=== PATIENT | male | born 1980 | race Hispanic/Latino ===

== ENCOUNTER 2019-03-18 21:56 | Inpatient (IN) | payer SELFPAY ==
[2019-03-18] MEDS ORDERED: ONDANSETRON 4 MG/2 ML VIAL ONE (22:22)
[2019-03-18] MEDS ORDERED: NA CHLORIDE 0.9% 1,000 ML ONE (22:22)
[2019-03-18] MEDS ORDERED: MORPHINE 4 MG/ML SYR ONE (22:22)
[2019-03-18 22:41] LABS: Basophils % 0.1 % (0-1.3); Hematocrit 47.7 % (39.6-49.0); Lymphocytes % 11.9 % (15.3-44.8); MPV 8.5 fL (7.6-11.3); RBC Red Blood Cell Count 5.21 M/uL (4.33-5.43)
[2019-03-18 22:53] LABS: Albumin 4.1 g/dL (3.4-5.0); Bilirubin Direct 0.3 mg/dL (0-0.2); Potassium 3.6 mmol/L (3.5-5.1)
[2019-03-19] MEDS ORDERED: MEPERIDINE HCL 25 MG/0.5 ML ONE (00:04)
--- NOTE | 2019-03-19 00:08 | ER ---
Nurse's Notes [facility] Name: Elton Carbone Age: 38 yrs Sex: Male : 1980 Arrival Date: 03/18/2019 Time: 21:59 Bed 20 Private MD: Diagnosis: Small bowel obstruction Presentation: 03/18 22:04 Presenting complaint: N/VD and upper abdominal pain x 2 days, not tolerating fluids. hb Transition of care: patient was not received from another setting of care. Onset of symptoms was March 17, 2019. Risk Assessment: Do you want to hurt yourself or someone else? Patient reports no desire to harm self or others. Care prior to arrival: None. 22:04 Method Of Arrival: Wheelchair hb 22:04 Acuity: ROCHELLE 3 hb 22:09 Initial Sepsis Screen: Does the patient meet any 2 criteria? HR > 90 bpm. No. Patient's jd3 initial sepsis screen is negative. Does the patient have a suspected source of infection? No. Patient's initial sepsis screen is negative. Historical: - Allergies: 22:05 No Known Allergies; hb - Home Meds: 22:05 Lisinopril Oral [Active]; hb - PMHx: 22:05 GERD; Hypertension; hb - PSHx: 22:05 Appendectomy; hb - Immunization history:: Adult Immunizations up to date. - Coronavirus screen:: The patient has NOT traveled to [place], [place], or [place] in the past 14 days. The patient has NOT had contact with known/suspected case of Coronavirus? Proceed with normal triage procedures. - Social history:: Smoking status: Patient denies any tobacco usage or history of. - Family history:: not pertinent. - Ebola Screening: : No symptoms or risks identified at this time. - Hospitalizations: : No recent hospitalization is reported. Screenin:08 Abuse screen: Denies threats or abuse. Nutritional screening: No deficits noted. jd3 Tuberculosis screening: No symptoms or risk factors identified. Fall Risk Ambulatory Aid- None/Bed Rest/Nurse Assist (0 pts). Gait- Normal/Bed Rest/Wheelchair (0 pts) Mental Status- Oriented to own ability (0 pts). Total Go Fall Scale indicates No Risk (0-24 pts). Assessment: 22:31 General: Appears in no apparent distress. uncomfortable, Behavior is calm, cooperative, jd3 appropriate for age. Pain: Complains of pain in right upper quadrant and left upper quadrant Quality of pain is described as sharp, tender. Neuro: Level of Consciousness is awake, alert, obeys commands, Oriented to person, place, time, situation. Cardiovascular: Denies chest pain, Capillary refill < 3 seconds Patient's skin is warm and dry. Respiratory: Airway is patent Respiratory effort is even, unlabored, Respiratory pattern is regular, symmetrical, Denies cough, shortness of breath. GI: Abdomen is round Bowel sounds present X 4 quads. firm and tender to palpation X 4 quads. Reports upper abdominal pain, diarrhea, nausea, vomiting. : No signs and/or symptoms were reported regarding the genitourinary system. EENT: No signs and/or symptoms were reported regarding the EENT system. Derm: Skin is intact, Skin is dry, Skin is normal, Skin temperature is warm. Musculoskeletal: Circulation, motion, and sensation intact. Range of motion: intact in all extremities. 23:22 Reassessment: Patient appears in no apparent distress at this time. Patient and/or jd3 family updated on plan of care and expected duration. Pain level reassessed. Patient is alert, oriented x 3, equal unlabored respirations, skin warm/dry/pink. reporting continued pain, but the pain medication helped. 03/19 00:47 Reassessment: Patient appears in no apparent distress at this time. Patient and/or jd3 family updated on plan of care and expected duration. Pain level reassessed. Patient is alert, oriented x 3, equal unlabored respirations, skin warm/dry/pink. Patient states feeling better. 01:38 Reassessment: Patient appears in no apparent distress at this time. Patient and/or jd3 family updated on plan of care and expected duration. Pain level reassessed. Patient is alert, oriented x 3, equal unlabored respirations, skin warm/dry/pink. Patient states feeling better. Vital Signs: 03/18 22:05 BP 120 / 107; Pulse 113; Resp 16; Temp 98.2; Pulse Ox 99% on R/A; Weight 88.45 kg; hb Height 6 ft. (182.88 cm); Pain 10/10; 23:23 BP 125 / 89; Pulse 82; Resp 17 S; Pulse Ox 100% on R/A; Pain 6/10; jd3 03/19 00:47 BP 143 / 98; Pulse 74; Resp 17 S; Pulse Ox 96% on R/A; jd3 01:35 BP 131 / 79; Pulse 66; Resp 17 S; Pulse Ox 95% on R/A; jd3 03/18 22:05 Body Mass Index 26.45 (88.45 kg, 182.88 cm) hb ED Course: 03/18 21:59 Patient arrived in ED. jg7 22:04 Triage completed. hb 22:05 Arm band placed on. hb 22:07 Adam Seymour, MITESH is Primary Nurse. jd3 22:09 Patient has correct armband on for positive identification. Bed in low position. Call jd3 light in reach. Side rails up X 1. Adult w/ patient. 22:11 Ron Lipscomb MD is Attending Physician. rn 22:28 Inserted saline lock: 20 gauge in right antecubital area, using aseptic technique. oe Blood collected. 23:10 CT completed. Patient tolerated procedure well. Patient moved to CT via wheelchair. bq Patient moved back from CT. 23:22 CT Abd/Pelvis - IV Contrast Only In Process Unspecified. EDMS 03/19 00:07 Aria Galicia MD is Hospitalizing Provider. rn 00:40 NGT: inserted 16 Fr. via right nare. verified placement of air over stomach, verified jd3 return of gastric contents, to intermittent suction. Returned gastric contents. Patient tolerated well. 01:35 No provider procedures requiring assistance completed. Patient admitted, IV remains in jd3 place. Administered Medications: 03/18 22:31 Drug: NS 0.9% 1000 ml Route: IV; Rate: 1000 ml; Site: right antecubital; jd3 03/19 00:00 Follow up: Response: No adverse reaction; IV Status: Completed infusion; IV Intake: jd3 1000ml 03/18 22:31 Drug: morphine 4 mg Route: IVP; Site: right antecubital; jd3 23:30 Follow up: Response: No adverse reaction; RASS: Alert and Calm (0) jd3 22:31 Drug: Zofran 4 mg Route: IVP; Site: right antecubital; jd3 23:30 Follow up: Response: No adverse reaction jd3 03/19 00:22 Drug: Demerol 25 mg Route: IVP; Site: right antecubital; jd3 01:20 Follow up: Response: No adverse reaction; RASS: Alert and Calm (0) jd3 00:44 Drug: Rocephin - (cefTRIAXone) 1 grams Route: IVPB; Infused Over: 30 mins; Site: right jd3 antecubital; 01:00 Follow up: Response: No adverse reaction; IV Status: Completed infusion jd3 00:46 Drug: Flagyl 500 mg Volume: 100 ml; Route: IVPB; Rate: 200 ml/hr; Infused Over: 30 jd3 mins; Site: right antecubital; 01:38 Follow up: Response: No adverse reaction; IV Status: Infusion continued upon admission jd3 Intake: 00:00 IV: 1000ml; Total: 1000ml. jd3 Outcome: 00:07 Decision to Hospitalize by Provider. rn 01:36 Admitted to Med/surg accompanied by tech, via wheelchair, room 211, with chart, Report jd3 called to Alis RN 01:36 Condition: stable 01:36 Instructed on the need for admit, Demonstrated understanding of instructions. 01:55 Patient left the ED. jd3 Signatures: Dispatcher [employer] EDMS Isela Fraser Roman, MD MD rn Baxter, Heather, RN RN hb Espinosa, Orlando oe Davies, Jonathon, RN RN jd3 Gutierrez, Jessica jg7
--- NOTE | 2019-03-19 00:09 | EDPHYS ---
Physician Documentation [facility] Name: Elton Carbone Age: 38 yrs Sex: Male : 1980 Arrival Date: 03/18/2019 Time: 21:59 Bed 20 Private MD: ED Physician Ron Lipscomb HPI: 03/18 22:56 This 38 yrs old Male presents to ER via Wheelchair with complaints of rn Abdominal Pain, Nausea/Vomiting/Diarrhea. 22:56 The patient presents to the emergency department with nausea, vomiting, diarrhea, rn abdominal pain. Onset: The symptoms/episode began/occurred 2 day(s) ago. Possible causes: unknown. The symptoms are aggravated by movement, pressure, The symptoms are alleviated by nothing. Severity of symptoms: At their worst the symptoms were moderate in the emergency department the symptoms are unchanged. The patient has not experienced similar symptoms in the past. Historical: - Allergies: 22:05 No Known Allergies; hb - Home Meds: 22:05 Lisinopril Oral [Active]; hb - PMHx: 22:05 GERD; Hypertension; hb - PSHx: 22:05 Appendectomy; hb - Immunization history:: Adult Immunizations up to date. - Coronavirus screen:: The patient has NOT traveled to [place], [place], or [place] in the past 14 days. The patient has NOT had contact with known/suspected case of Coronavirus? Proceed with normal triage procedures. - Social history:: Smoking status: Patient denies any tobacco usage or history of. - Family history:: not pertinent. - Ebola Screening: : No symptoms or risks identified at this time. - Hospitalizations: : No recent hospitalization is reported. ROS: 22:56 Constitutional: Negative for fever, chills, and weight loss, Eyes: Negative for injury, rn pain, redness, and discharge, Cardiovascular: Negative for chest pain, palpitations, and edema, Respiratory: Negative for shortness of breath, cough, wheezing, and pleuritic chest pain, Abdomen/GI: + abd pain, + nausea/vomiting/diarrhea Back: Negative for injury and pain, : Negative for injury, bleeding, discharge, and swelling, MS/Extremity: Negative for injury and deformity, Skin: Negative for injury, rash, and discoloration, Neuro: Negative for headache, weakness, numbness, tingling, and seizure. Exam: 22:56 Constitutional: This is a well developed, well nourished patient who is awake, alert, rn + moderate pain Head/Face: Normocephalic, atraumatic. ENT: dry MM Cardiovascular: Tachycardic. No pulse deficits. Respiratory: Lungs have equal breath sounds bilaterally, clear to auscultation and percussion. No rales, rhonchi or wheezes noted. No increased work of breathing, no retractions or nasal flaring. Abdomen/GI: firm, with diffuse tenderness and guarding MS/ Extremity: Pulses equal, no cyanosis. Neurovascular intact. Full, normal range of motion. Equal circumference. Neuro: Awake and alert, GCS 15, oriented to person, place, time, and situation. Cranial nerves II-XII grossly intact. Motor strength 5/5 in all extremities. Sensory grossly intact. Vital Signs: 22:05 BP 120 / 107; Pulse 113; Resp 16; Temp 98.2; Pulse Ox 99% on R/A; Weight 88.45 kg; hb Height 6 ft. (182.88 cm); Pain 10/10; 23:23 BP 125 / 89; Pulse 82; Resp 17 S; Pulse Ox 100% on R/A; Pain 6/10; jd3 03/19 00:47 BP 143 / 98; Pulse 74; Resp 17 S; Pulse Ox 96% on R/A; jd3 01:35 BP 131 / 79; Pulse 66; Resp 17 S; Pulse Ox 95% on R/A; jd3 03/18 22:05 Body Mass Index 26.45 (88.45 kg, 182.88 cm) hb MDM: 03/18 22:11 Patient medically screened. rn 03/19 00:03 ED course: Paging Dr. Ortiz regarding SBO, NG tube being placed, as well as more pain rn meds.. 00:05 Differential diagnosis: abdominal perforation, SBO, volvulus. Data reviewed: vital rn signs, nurses notes, lab test result(s), radiologic studies, CT scan, and as a result, I will admit patient. Counseling: I had a detailed discussion with the patient and/or guardian regarding: the historical points, exam findings, and any diagnostic results supporting the discharge/admit diagnosis, lab results, radiology results, the need for further work-up and treatment in the hospital. Response to treatment: the patient's symptoms have mildly improved after treatment. Admission orders: after a detailed discussion of the patient's condition and case, the admit orders are written by me. ED course: Consulted with Dr. Ortiz, will admit to hospitalist with abx, pain meds, NG tube, and will see in AM.. 03/18 22:16 Order name: Basic Metabolic Panel; Complete Time: 22:56 rn 03/18 22:16 Order name: CBC with Diff; Complete Time: :56 rn 03/18 22:16 Order name: Creatinine for Radiology; Complete Time: 22:56 rn 03/18 22:16 Order name: Hepatic Function; Complete Time: 22:56 rn 03/18 22:16 Order name: Lipase; Complete Time: 22:56 rn 03/18 22:16 Order name: CT Abd/Pelvis - IV Contrast Only rn 03/18 22:16 Order name: IV Saline Lock; Complete Time: 22:29 rn 03/18 22:16 Order name: Labs collected and sent; Complete Time: 22:29 rn 03/18 23:56 Order name: NG Tube; Complete Time: 00:46 rn Administered Medications: 03/18 22:31 Drug: NS 0.9% 1000 ml Route: IV; Rate: 1000 ml; Site: right antecubital; jd3 03/19 00:00 Follow up: Response: No adverse reaction; IV Status: Completed infusion; IV Intake: jd3 1000ml 03/18 22:31 Drug: morphine 4 mg Route: IVP; Site: right antecubital; jd3 23:30 Follow up: Response: No adverse reaction; RASS: Alert and Calm (0) jd3 22:31 Drug: Zofran 4 mg Route: IVP; Site: right antecubital; jd3 23:30 Follow up: Response: No adverse reaction jd3 03/19 00:22 Drug: Demerol 25 mg Route: IVP; Site: right antecubital; jd3 01:20 Follow up: Response: No adverse reaction; RASS: Alert and Calm (0) jd3 00:44 Drug: Rocephin - (cefTRIAXone) 1 grams Route: IVPB; Infused Over: 30 mins; Site: right [facility] antecubital; 01:00 Follow up: Response: No adverse reaction; IV Status: Completed infusion jd3 00:46 Drug: Flagyl 500 mg Volume: 100 ml; Route: IVPB; Rate: 200 ml/hr; Infused Over: 30 jd3 mins; Site: right antecubital; 01:38 Follow up: Response: No adverse reaction; IV Status: Infusion continued upon admission jd3 Disposition: 03/19/19 00:07 Hospitalization ordered by Aria Galicia for Inpatient Admission. Preliminary diagnosis is Small bowel obstruction. - Bed requested for Telemetry/MedSurg (Inpatient). - Status is Inpatient Admission. jd3 - Condition is Stable. - Problem is new. - Symptoms have improved. UTI on Admission? No Signatures: Dispatcher [employer] EDMS Ron Lipscomb MD MD rn Garcia, Cindy, RN RN Sally Hwang RN RN hb Davies, Jonathon, RN RN jd3 Corrections: (The following items were deleted from the chart) 00:48 00:07 Hospitalization Ordered by Aria Galicia MD for Inpatient Admission. Preliminary cg diagnosis is Small bowel obstruction. Bed requested for Telemetry/MedSurg (Inpatient). Status is Inpatient Admission. Condition is Stable. Problem is new. Symptoms have improved. UTI on Admission? No. rn 01:55 00:48 03/19/2019 00:07 Hospitalization Ordered by Aria Galicia MD for Inpatient jd3 Admission. Preliminary diagnosis is Small bowel obstruction. Bed requested for Telemetry/MedSurg (Inpatient). Status is Inpatient Admission. Condition is Stable. Problem is new. Symptoms have improved. UTI on Admission? No. cg
[2019-03-19] MEDS ORDERED: CEFTRIAXONE/SWI 1gm 1 GM/10 ML SYR ONE (00:39)
[2019-03-19] MEDS ORDERED: METRONIDAZOLE 500mg IVPB 500 MG/100 ML BAG IV ONE (00:39)
[2019-03-19] MEDS ORDERED: ONDANSETRON 4 MG/2 ML VIAL IV PRN (01:42)
--- NOTE | 2019-03-19 01:49 | P.HP ---
Certification for Inpatient With expected LOS: >2 Midnights Practitioner: I am a practitioner with admitting privileges, knowledge of patient current condition, hospital course, and medical plan of care. Services: Services provided to patient in accordance with Admission requirements found in Title 42 Section 412.3 of the Code of Federal Regulations Patient History Date of Service: 03/19/19 Reason for admission: stomach pain History of Present Illness: manny wright is a 38yoM w/ pmhx of HTN presenting to ED w/ 3 days of abdominal pain. new onset and no similar in the past and on ED evaluation is found to have SBO. he notes that he has 1-4 BMs every morning w/o mucous or blood and was in his normal state of health until . he complained of mild mid- abdominal cramping but by Wednesday his abdominal pain started to intensify and then during his morning BMs he started having vomiting episodes. every BM he had he then also had a vomiting episode. he states that his stool has now turned green. he reports that movement worsens the pain. but does not know anything that improves the pain. surgical hx: perforated appendix w/removal - 10yoa he reports nausea, vomiting, UMANA, and sweating. he denies fever, chill, cp, sob, swelling, coughing. he denies tobacco, drugs, or etoh use Allergies No Known Allergies Allergy (Verified 03/19/19 01:57) Home medications list reviewed: Yes - Past Medical/Surgical History Diabetic: No -: htn -: appendectomy - Family History Father -: Seizures parents -: Hypertension, Diabetes - Social History Smoking Status: Never smoker Smoking therapy provided: No Alcohol use: No CD- Drugs: No Review of Systems General: Unremarkable Eyes: Unremarkable ENT: Unremarkable Respiratory: Unremarkable Cardiovascular: Unremarkable Gastrointestinal: Nausea, Vomiting, Abdominal Pain, Diarrhea, Distention, As per HPI Genitourinary: Unremarkable Musculoskeletal: Unremarkable Integumentary: Unremarkable Neurological: Unremarkable Physical Examination - Physical Exam General: Alert, In no apparent distress, Oriented x3, Cooperative, Other ( appears uncomfortable but not toxic or ill appearing. a/ox3, NAD. ) HEENT: Atraumatic, Other (NGT in place) Neck: Supple Respiratory: Normal air movement, Inspiratory wheezes (ON THE RIGHT) Cardiovascular: No edema, Normal pulses, Regular rate/rhythm, Normal S1 S2, No murmurs Capillary refill: <2 Seconds Gastrointestinal: No ascites, No masses, No guarding (soft, notable palpation of the periumbilical region), Other, Hyperactive Integumentary: No rashes, No breakdown, No cyanosis Neurological: Normal speech, Other (gait not tested) External genitalia: Deferred Rectal: Deferred - Studies Laboratory Data (last 24 hrs) 03/18/19 22:24: Creatinine 1.02 03/18/19 22:24: WBC 8.0, Hgb 16.1, Hct 47.7, Plt Count 263 03/18/19 22:24: Sodium 142, Potassium 3.6, BUN 15, Creatinine 1.02, Glucose 125 H, Total Bilirubin 1.0, AST 14 L, ALT 31, Alkaline Phosphatase 77, Lipase 74 Assessment and Plan - Plan 38yoM admitted w/ new onset SBO NGT to WS NPO, on IVF, analgesics and PPI C. diff and stool cx iv abx for gut translocation obtain a1c/tsh/procal and lactic acid DVT ppx - SCD - Advance Directives Does patient have a Living Will: No Does patient have a Durable POA for Healthcare: No
[2019-03-19] MEDS ORDERED: CEFTRIAXONE 1 GM/NS 50 ML 1 GM/50 ML BAG IV SCH (01:50)
[2019-03-19] MEDS ORDERED: SODIUM CHLORIDE 0.9% 10ML INJ IV PRN (01:50)
[2019-03-19] MEDS: NA CHLORIDE 0.9% 1,000 ML IV SCH ×4 (02:00→12:00)
[2019-03-19 03:17] VITALS: BMI 26.1
[2019-03-19] MEDS ORDERED: MORPHINE 2 MG/ML SYR IV PRN (04:08)
[2019-03-19 04:25] LABS: Urine Appearance CLEAR; Urine Bilirubin NEGATIVE (NEG); Urine Blood NEGATIVE (NEG); Urine Color YELLOW; Urine Glucose NEGATIVE (NEG); Urine Protein NEGATIVE (NEG); Urine Specific Gravity >=1.030 (1.005-1.030); Urine Urobilinogen 0.2 mg/dL (0.2-1.0); Urine pH 7.5 (5.0-7.0)
[2019-03-19 04:26] LABS: Urine Microscopic Reflex NO UMIC
[2019-03-19 04:36] LABS: Barbiturates NEGATIVE (NEGATIVE); Benzodiazepines NEGATIVE (NEGATIVE); Cocaine NEGATIVE (NEGATIVE); METHAMPHETAM NEGATIVE (NEGATIVE); Methadone NEGATIVE (NEGATIVE); Opiates POSITIVE (NEGATIVE); Phencyclidine NEGATIVE (NEGATIVE); THC Cannibis NEGATIVE (NEGATIVE)
[2019-03-19 05:06] LABS: Absolute Lymphocytes (CBC) 1.6 K/uL (0.7-4.9); Basophils % 0.1 % (0-1.3); Hematocrit 45.3 % (39.6-49.0); Lymphocytes % 24.2 % (15.3-44.8); MPV 8.4 fL (7.6-11.3); RBC Red Blood Cell Count 4.94 M/uL (4.33-5.43)
[2019-03-19 05:07] LABS: Protime INR 1.04
[2019-03-19 05:29] LABS: ALT/SGPT 29 U/L (12-78); AST/SGOT 12 U/L (15-37); Albumin 3.9 g/dL (3.4-5.0); Alkaline Phosphatase 71 U/L (45-117); BUN Blood Urea Nitrogen 14 mg/dL (7-18); Bicarbonate 29 mmol/L (21-32); Bilirubin Total 0.7 mg/dL (0.2-1.0); Glucose Level 104 mg/dL (74-106); Magnesium 2.5 mg/dL (1.8-2.4); Potassium 3.9 mmol/L (3.5-5.1); Protein, Total 7.4 g/dL (6.4-8.2); Sodium Level 142 mmol/L (136-145)
[2019-03-19] MEDS ORDERED: HYDROMORPHONE HCL 0.5 MG/0.5 ML INJ IV PRN (06:47)
[2019-03-19] MEDS: PANTOPRAZOLE 40 MG INJ IVP SCH (08:33)
--- NOTE | 2019-03-19 10:21 | P.PN ---
Subjective Date of Service: 03/19/19 Chief Complaint: Small-bowel obstruction Subjective: Improving Patient admitted with nausea vomiting and some diarrhea is currently doing well he has an NG tube denies any nausea vomiting or diarrhea his abdominal pain has declined seen by general surgery Review of Systems Unremarkable Physical Examination - Vital Signs Temperature: 98.5 F Blood Pressure: 118/68 Pulse: 69 Respirations: 18 Pulse Ox (%): 91 - Physical Exam General: Alert, Oriented x3 Respiratory: Clear to auscultation bilaterally Cardiovascular: No edema, Regular rate/rhythm Gastrointestinal: Normal bowel sounds, Soft and benign, Non-distended - Studies Laboratory Data (last 24 hrs) 03/18/19 22:24: Creatinine 1.02 03/18/19 22:24: WBC 8.0, Hgb 16.1, Hct 47.7, Plt Count 263 03/18/19 22:24: Sodium 142, Potassium 3.6, BUN 15, Creatinine 1.02, Glucose 125 H, Total Bilirubin 1.0, AST 14 L, ALT 31, Alkaline Phosphatase 77, Lipase 74 Assessment & Plan - Problems (Diagnosis) (1) Small bowel obstruction Current Visit: Yes Status: Acute Plan: Patient admitted with small-bowel obstruction seen by general surgery he is at surgeries before feels fine now has an NG tube labs unremarkable continue NPO the need a small bowel series Discharge Plan: Home Plan to discharge in: 24 Hours
--- NOTE | 2019-03-19 11:14 | CON ---
Date of Consultation: 03/19/2019 Reason For Consultation: Small bowel obstruction. History Of Present Illness: Patient is a 38-year-old gentleman who presents to the emergency room wi th acute onset of epigastric and left-sided abdominal pain associated with nausea and vomiting. He h as had numerous bowel movements every morning with mucus and he started having mid abdominal cramping on [place] and yesterday and the nausea and vomiting intensified as did the pain. He came to the [facility] room and was admitted. He is still passing gas from below. He does not have any fever or chi lls. No sore throat, runny nose, cough, headaches, or dizziness. Review of Systems: Otherwise unremarkable. Medical History: Significant fir hypertension. Past Surgical History: SUSTAINABLE DEVELOPMENT POLICY ANALYST shunt as a child which was removed and an open appendectomy for perforated appendicitis approximately 12 years ago. Allergies: NO ALLERGIES. Social History: He does not smoke. Denies drinking. Family History: Significant for diabetes, hypertension, and seizures in the father. Physical Examination: Vital Signs: Stable. He is currently afebrile. He is awake, alert, oriented x3. Endocrine: Cranial nerves 2 through 12 grossly within normal limits. No neck masses. No JVD. Thro at clear. Neck: Supple. Chest: Clear. Heart: S1 and S2. Abdomen: Soft, slightly distended. Hypoactive bowel sounds, tenderness in the left side of the abdo men. No rigidity. No guarding. Extremity: Adequately perfused. Nontender. Neuro: Nonfocal. Laboratory Data: Shows a normal white count. There is no left shift this morning. INR is normal. Chemistry reviewed. Lactic acid is normal. Remaining of the electrolytes are unremarkable. CT of t he abdomen and pelvis reviewed with Dr. Hampton and essentially reveals a possible closed loop obstr uction. There is minimal congestion of the vascular mesentry. There is no pneumatosis. There is no free air. There is air and stool in the colon. There is collapsed distal small bowel. Assessment: 38-year-old gentleman with small bowel obstruction, possible closed loop obstruction. Recommendations: I discussed the case with Dr. Hampton and I think we will proceed with a small bow el series to make sure this is not indeed a closed-loop obstruction. As he is having some bowel func tion I do not believe it is a complete obstruction. It may be a partial obstruction and we will keep the patient n.p.o. with NG tube, IV fluids, IV antibiotics and I will make further recommendations a s the case develops. We will follow the patient while in the hospital. NELLIE/CONNIE Voice ID: [id number] Report ID: [id number]
--- NOTE | 2019-03-19 15:01 | RAD REPORT ---
EXAM DESCRIPTION: RAD - Abdomen Single View - 03/19/2019 12:20 pm CLINICAL HISTORY: Abdominal pain FINDINGS: A nasogastric tube is coiled within the stomach. Free air is not seen beneath the diaphrag m A loop of small bowel is mildly to moderately dilated. Air is also present within the colon. This may indicate an adynamic ileus or enteritis
--- NOTE | 2019-03-19 16:12 | RAD REPORT ---
EXAM DESCRIPTION: RAD - Small Bowel Series - 03/19/2019 3:52 pm CLINICAL HISTORY: Abdominal pain/ COMPARISON: March 18, 2019 cat scan FINDINGS: Gastrografin was administered into the stomach via a nasogastric tube. Contrast enters the colon by approximately 1 hour 45 minutes. The mucosal folds of the small bowel appear normal. No permanent filling defects, obstructing or constricting lesions are seen. Mild dilatation of several small bowel loops are present. . IMPRESSION: These findings may indicate an enteritis
[2019-03-19] MEDS ORDERED: CEFTRIAXONE/SWI 1gm 1 GM/10 ML SYR IV SCH (21:00)
[2019-03-20] MEDS: NA CHLORIDE 0.9% 1,000 ML IV SCH ×2 (00:49→08:15)
[2019-03-20] MEDS: PANTOPRAZOLE 40 MG INJ IVP SCH (08:16)
[2019-03-20] MEDS: NACHLORIDE 0.45% 1,000 ML IV SCH ×2 (09:05→18:18)
[2019-03-20] MEDS: METRONIDAZOLE 500mg IVPB 500 MG/100 ML BAG IV SCH ×2 (09:06→16:07)
[2019-03-20] MEDS: CIPROFLOXACIN 400mg IV 400 MG/200 ML BAG IV SCH ×2 (09:06→20:11)
--- NOTE | 2019-03-20 10:57 | P.PN ---
Subjective Date of Service: 03/20/19 Primary Care Provider: Dr. Solorio Chief Complaint: Small-bowel obstruction Subjective: Improving (Patient is passing gas and having diarrhea. Patient feels better. No significant nausea vomiting.) Physical Examination - Vital Signs Temperature: 97.8 F Blood Pressure: 119/66 Pulse: 68 Respirations: 16 Pulse Ox (%): 97 - Physical Exam General: Alert, In no apparent distress, Oriented x3, Cooperative HEENT: Atraumatic Neck: Supple Respiratory: Clear to auscultation bilaterally, Normal air movement Cardiovascular: Normal pulses, Regular rate/rhythm Gastrointestinal: Normal bowel sounds, Soft and benign, Non-distended, No tenderness, No masses, No rebound, No guarding Musculoskeletal: No erythema, No tenderness, No warmth Integumentary: No tenderness/swelling, No erythema, No warmth, No cyanosis Neurological: Normal speech, Normal strength at 5/5 x4 extr, Normal tone, Normal affect - Studies Medications List Reviewed: Yes Assessment & Plan Discharge Plan: Home Plan to discharge in: 24 Hours Physician Review Additional Text: Impression: Abdominal pain suspect enteritis versus partial small-bowel obstruction Plan: IV antibiotic is adjusted. Now on IV Cipro and Flagyl. Suspect enteritis. IV fluids adjusted. Patient with NG tube in place. Patient tolerating clear liquid diet. Possible advancement of his diet if okay with surgery. Encourage ambulation. Will provide incentive spirometer. If significantly improved likely in the next 24-48 hr. Will discuss with surgery about plan of care. Time Spent Managing Pts Care (In Minutes): 55
--- NOTE | 2019-03-20 11:04 | RAD REPORT ---
EXAM DESCRIPTION: CT - Abdomen Pelvis W Contrast - 03/19/2019 5:33 am CLINICAL HISTORY: 38-year-old male with abdominal pain TECHNIQUE: Axial CT imaging of the abdomen and pelvis was performed following the administration of intravenous contrast.. Sagittal and coronal reconstructed images were then performed. The CT stud y is performed according to ALARA (as low as reasonably achievable) or ALARA/IMAGE GENTLY, with autom atic adjustment of mA and/or kV according to patient size. Performed on: 03/18/2019 11:13 PM. Comparison: No prior studies were available for comparison. FINDINGS: Lung bases: The lung bases are grossly clear. Liver: The liver is grossly normal in size and is normal in configuration. No focal hepatic abnormali ties are identified. Liver attenuation is within normal limits. Spleen: The spleen is normal is size, configuration and attenuation. Gallbladder and bile duct: The gallbladder is well distended and unremarkable. There is no biliary ductal dilatation. Pancreas: The pancreas is grossly normal in size and configuration. Adrenal Glands: The adrenal glands are normal in size and configuration. Kidneys: The kidneys are normal in size and configuration. There is no evidence of hydronephrosis. Th ere is no evidence of nephrolithiasis. No definite solid or cystic renal mass lesions are identified. Stomach: The stomach is grossly normal. There is no definite hiatal hernia. Bowel: There are a couple of dilated fluid-filled and stool-filled small bowel loops within the left hemiabdomen concerning for a closed loop obstruction. The colon is normal in caliber and contour and contains scattered air and fecal residue. The distal small bowel is normal in caliber. Appendix: The appendix is not visualized and may be surgically absent. Free air: There is no evidence of free air. Free fluid: There is a small amount of free fluid in the anterior left lower quadrant adjacent to a d ilated small bowel loop. Vasculature: The aorta is normal in caliber and contour. The inferior vena cava is grossly unremarkab le. Lymphadenopathy: No pathologic lymphadenopathy is identified. Bladder: The bladder is incompletely distended on this examination and smooth in contour. Reproductive: The prostate gland is grossly within normal limits. Bones: No acute osseous abnormalities are identified. Soft tissues: No focal soft tissue abnormalities are identified. IMPRESSION: 1. CT findings concerning for a closed loop small bowel obstruction in the left hemiabdo men. There is a small amount of free fluid in the anterior left lower quadrant. There is no CT eviden ce of perforation. There is no evidence of pneumatosis. 2. Otherwise, grossly unremarkable contrast-enhanced CT scan of the abdomen and pelvis. These critical findings were discussed with Dr. Lipscomb on 03/18/2019 at 11:56 PM Central time Electronically signed by: Adrienne Michaud DO 03/18/2019 11:57 PM SENIOR FINANCIAL REPORTING ACCOUNTANT Due to temporary technical issues with the PACS/Fluency reporting system, reports are being signed by the in house radiologist as a courtesy to ensure prompt reporting. The interpreting radiologist is f ully responsible for the content of the report.
[2019-03-20 14:44] LABS: C.diff Antigen/Toxin Ag neg : Tox neg (NEG : NEG)
--- NOTE | 2019-03-20 19:29 | PN ---
Date of Progress Note: 03/20/2019 Subjective: Patient is awake, alert. No complaint. Tolerating liquids, passing gas, having bowel m ovements. Small bowel series done yesterday was negative. Objective: Vital Signs: stable. He is afebrile. Abdomen: Soft, nondistended, nontender. Positive bowel sounds. Assessment: Likely gastroenteritis, resolved. Recommendations: Advance diet as tolerated. Discharge on oral antibiotics and follow up with the GI Service. /MODL Voice ID: [id number] Report ID: [id number]
[2019-03-21] MEDS: METRONIDAZOLE 500mg IVPB 500 MG/100 ML BAG IV SCH ×2 (00:18→08:52)
[2019-03-21] MEDS: NACHLORIDE 0.45% 1,000 ML IV SCH (03:30)
[2019-03-21 04:59] LABS: Absolute Lymphocytes (CBC) 1.7 K/uL (0.7-4.9); Basophils % 0.4 % (0-1.3); Hematocrit 42.4 % (39.6-49.0); Lymphocytes % 29.9 % (15.3-44.8); MPV 8.6 fL (7.6-11.3); RBC Red Blood Cell Count 4.62 M/uL (4.33-5.43)
[2019-03-21 05:17] LABS: BUN Blood Urea Nitrogen 9 mg/dL (7-18); Bicarbonate 25 mmol/L (21-32); Glucose Level 102 mg/dL (74-106); Potassium 3.7 mmol/L (3.5-5.1); Sodium Level 140 mmol/L (136-145)
[2019-03-21 08:15] VITALS: BP 129/69; TEMP 97.4
--- NOTE | 2019-03-21 08:44 | P.DS ---
Admission Date: 03/19/19 Discharge Date: 03/21/19 Primary Care Provider: Dr. Solorio Disposition: ROUTINE DISCHARGE Discharge Condition: GOOD Reason for Admission: Small-bowel obstruction Consultations: Surgery-Dr. Ortiz Procedures: CT Scan: FINDINGS: Lung bases: The lung bases are grossly clear. Liver: The liver is grossly normal in size and is normal in configuration. No focal hepatic abnormalities are identified. Liver attenuation is within normal limits. Spleen: The spleen is normal is size, configuration and attenuation. Gallbladder and bile duct: The gallbladder is well distended and unremarkable. There is no biliary ductal dilatation. Pancreas: The pancreas is grossly normal in size and configuration. Adrenal Glands: The adrenal glands are normal in size and configuration. Kidneys: The kidneys are normal in size and configuration. There is no evidence of hydronephrosis. There is no evidence of nephrolithiasis. No definite solid or cystic renal mass lesions are identified. Stomach: The stomach is grossly normal. There is no definite hiatal hernia. Bowel: There are a couple of dilated fluid-filled and stool-filled small bowel loops within the left hemiabdomen concerning for a closed loop obstruction. The colon is normal in caliber and contour and contains scattered air and fecal residue. The distal small bowel is normal in caliber. Appendix: The appendix is not visualized and may be surgically absent. Free air: There is no evidence of free air. Free fluid: There is a small amount of free fluid in the anterior left lower quadrant adjacent to a dilated small bowel loop. Vasculature: The aorta is normal in caliber and contour. The inferior vena cava is grossly unremarkable. Lymphadenopathy: No pathologic lymphadenopathy is identified. Bladder: The bladder is incompletely distended on this examination and smooth in contour. Reproductive: The prostate gland is grossly within normal limits. Bones: No acute osseous abnormalities are identified. Soft tissues: No focal soft tissue abnormalities are identified. IMPRESSION: 1. CT findings concerning for a closed loop small bowel obstruction in the left hemiabdomen. There is a small amount of free fluid in the anterior left lower quadrant. There is no CT evidence of perforation. There is no evidence of pneumatosis. 2. Otherwise, grossly unremarkable contrast-enhanced CT scan of the abdomen and pelvis. Follow up Xray: FINDINGS: A nasogastric tube is coiled within the stomach. Free air is not seen beneath the diaphragm A loop of small bowel is mildly to moderately dilated. Air is also present within the colon. This may indicate an adynamic ileus or enteritis Medical Problem list: Abdominal pain likely related to small partial bowel obstruction with enteritis Hypertension GERD Brief History of Present Illness: 38-year-old male presented to the emergency room with abdominal pain mainly to the epigastric and left quadrant. He was associated with nausea, vomiting. CT scan revealed possible partial small bowel obstruction. The patient was admitted for further evaluation. Hospital Course: Patient presented with abdominal pain, nausea and vomiting. Initial CT scan showed partial small-bowel obstruction. Patient was evaluated by surgery. The patient was kept NPO and started on IV fluids and antibiotic therapy. During the course of his stay his condition improved. His diet was slowly advanced. Repeat x-ray showed possible enteritis. At discharge patient without any significant abdominal pain, nausea and vomiting. Obstruction has resolved. Patient has had passage of bowel movement and gas. Patient cleared by surgery for discharge. At discharge she will continue with Cipro 500 mg 1 pill twice daily and Flagyl 500 mg 3 times a day for 10 days. Patient will also continue with pro biotics twice daily. Recommend to continue with a GI soft diet then advance to a heart healthy diet. Recommend follow up with GI in 6-8 weeks for endoscopy evaluation. Education on enteritis provided. Patient with history of hypertension. Patient may continue with lisinopril 5 mg daily. Recommend to maintain blood pressures less 150/80. Further adjustment can be done by his PCP. May need to hold blood pressure medication if systolic blood pressure less than 110. Patient with history of GERD. At discharge he may continue with Protonix 40 mg daily. Vital Signs/Physical Exam: Temp Pulse Resp BP Pulse Ox 97.4 F 69 16 129/69 97 03/21/19 08:00 03/21/19 08:00 03/21/19 08:00 03/21/19 08:00 03/21/19 08:00 General: Alert, In no apparent distress, Oriented x3, Cooperative HEENT: Atraumatic Neck: Supple Respiratory: Clear to auscultation bilaterally, Normal air movement Cardiovascular: Normal pulses, Regular rate/rhythm Gastrointestinal: Normal bowel sounds, Soft and benign, Non-distended, No tenderness, No masses, No rebound, No guarding Musculoskeletal: No erythema, No tenderness, No warmth Integumentary: No tenderness/swelling, No erythema, No warmth, No cyanosis Neurological: Normal speech, Normal strength at 5/5 x4 extr, Normal tone, Normal affect Laboratory Data at Discharge: WBC 5.8 K/uL (4.3-10.9) 03/21/19 04:27 Hgb 14.3 g/dL (13.6-17.9) 03/21/19 04:27 Hct 42.4 % (39.6-49.0) 03/21/19 04:27 Plt Count 250 K/uL (152-406) 03/21/19 04:27 PT 12.3 SECONDS (9.5-12.5) 03/19/19 04:54 INR 1.04 03/19/19 04:54 Sodium 140 mmol/L (136-145) 03/21/19 04:27 Potassium 3.7 mmol/L (3.5-5.1) 03/21/19 04:27 BUN 9 mg/dL (7-18) 03/21/19 04:27 Creatinine 0.79 mg/dL (0.55-1.3) 03/21/19 04:27 Glucose 102 mg/dL (74-106) 03/21/19 04:27 Magnesium 2.0 mg/dL (1.8-2.4) D 03/21/19 04:27 Total Bilirubin 0.7 mg/dL (0.2-1.0) 03/19/19 04:54 AST 12 U/L (15-37) L 03/19/19 04:54 ALT 29 U/L (12-78) 03/19/19 04:54 Alkaline Phosphatase 71 U/L (45-117) 03/19/19 04:54 Lipase 74 U/L (73-393) 03/18/19 22:24 Home Medications: Pantoprazole [Protonix Tab*] 1 tab PO DAILY 03/19/19 lisinopriL [Lisinopril] 1 tab PO DAILY 03/19/19 Bacillus Coagulans [Probiotic] 1 each PO BID #60 capsule. 03/21/19 Ciprofloxacin HCl [Cipro 500 MG Tablet] 500 mg PO BID #20 tab 03/21/19 metroNIDAZOLE [Flagyl] 500 mg PO Q8H #30 tablet 03/21/19 New Medications: Bacillus Coagulans [Probiotic] 1 each PO BID #60 capsule. Ciprofloxacin HCl [Cipro 500 MG Tablet] 500 mg PO BID #20 tab metroNIDAZOLE [Flagyl] 500 mg PO Q8H #30 tablet Patient Discharge Instructions: 1. Recommend follow up with PCP in 1-2 weeks to follow up this hospitalization. 2. Patient presented with abdominal pain, nausea and vomiting. Initial CT scan showed partial small-bowel obstruction. Patient was evaluated by surgery. The patient was kept NPO and started on IV fluids and antibiotic therapy. During the course of his stay his condition improved. His diet was slowly advanced. Repeat x-ray showed possible enteritis. At discharge patient without any significant abdominal pain, nausea and vomiting. Obstruction has resolved. Patient has had passage of bowel movement and gas. Patient cleared by surgery for discharge. At discharge she will continue with Cipro 500 mg 1 pill twice daily and Flagyl 500 mg 3 times a day for 10 days. Patient will also continue with pro biotics twice daily. Recommend to continue with a GI soft diet then advance to a heart healthy diet. Recommend follow up with GI in 6-8 weeks for endoscopy evaluation. Education on enteritis provided. 3. Patient with history of hypertension. Patient may continue with lisinopril 5 mg daily. Recommend to maintain blood pressures less 150/80. Further adjustment can be done by his PCP. May need to hold blood pressure medication if systolic blood pressure less than 110. 4. Patient with history of GERD. At discharge he may continue with Protonix 40 mg daily. Diet: GI soft then advance to heart healthy Activity: Ad paola Time spent managing pt's care (in minutes): 55
[2019-03-21] MEDS: PANTOPRAZOLE 40 MG INJ IVP SCH (08:52)
[2019-03-21] MEDS: CIPROFLOXACIN 400mg IV 400 MG/200 ML BAG IV SCH (08:53)
[2019-03-21 09:58] VITALS: O2SAT 97
== END 2019-03-21 10:50 | disposition home or self-care (01) | DRG 390 ==
LOC: ER 21:56 → ERHOLD 03-19 00:55 → 2ND 03-19 01:41
PROVIDERS: ADMIT Internal Medicine; ATTEND Internal Medicine
DX: K56.600 Partial intestinal obstruction, unspecified as to cause (principal); K52.9 Noninfective gastroenteritis and colitis, unspecified; I10 Essential (primary) hypertension; K21.9 Gastro-esophageal reflux disease without esophagitis
CPT/HCPCS: 36415; 74018; 74177; 74250; 80048; 80053; 80076; 80307; 81003; 83036; 83605; 83690; 83735; 84439; 84443; 85025; 85610; 87045; 87046; 87324; 87449; 96361; 96365; 96368; 96375; 99285; C9113; J0696; J0744; J1170; J2175; J2270; J2405; J7030; Q9967

== ENCOUNTER 2021-07-08 19:20 | Inpatient (IN) | payer BC, SELFPAY ==
[2021-07-08 20:40] VITALS: BMI 26.3
[2021-07-08] MEDS ORDERED: ONDANSETRON 4 MG/2 ML VIAL IV PRN (21:04)
[2021-07-08] MEDS ORDERED: HYDROMORPHONE HCL 1 MG/ML INJ IV PRN (21:04)
--- NOTE | 2021-07-08 21:52 | P.HP ---
Certification for Inpatient Patient admitted to: Inpatient With expected LOS: <2 Midnights Patient will require the following post-hospital care: None Practitioner: I am a practitioner with admitting privileges, knowledge of patient current condition, hospital course, and medical plan of care. Services: Services provided to patient in accordance with Admission requirements found in Title 42 Section 412.3 of the Code of Federal Regulations Patient History Date of Service: 07/08/21 Primary Care Provider: Lyndsey Reason for admission: SBO History of Present Illness: Patient is a 40-year-old male with hypertension, GERD, history of SBO who is being admitted as a transfer from [place] for partial small bowel obstruction. He reports that 5 days ago, he started experiencing abdominal pain, nausea, vomiting, diarrhea. He states that the n/v/d has resolved but the abdominal pain persists. He states that it feels different from his previous small bowel obstruction pain. CT abd/pelv from [place] showed "diluted fluid filled mid small bowel loops measuring up to 4.4 cm concerning for partial SBO." Other labs within normal limits. He was given liter of fluid, 40 of Protonix, and 75 of fentanyl then transferred here. Gen surgery has agreed to consult. Allergies No Known Allergies Allergy (Verified 03/19/19 01:57) Home Medications: Pantoprazole [Protonix Tab*] 1 tab PO DAILY 03/19/19 lisinopriL [Lisinopril] 1 tab PO DAILY 03/19/19 Bacillus Coagulans [Probiotic] 1 each PO BID #60 capsule. 03/21/19 Ciprofloxacin HCl [Cipro 500 MG Tablet] 500 mg PO BID #20 tab 03/21/19 metroNIDAZOLE [Flagyl] 500 mg PO Q8H #30 tablet 03/21/19 - Past Medical/Surgical History Diabetic: No -: HTN -: GERD -: SBO -: appendectomy Psychosocial/ Personal History: Patient is and self-employed. - Family History Father -: Seizures parents -: Hypertension, Diabetes - Social History Smoking Status: Never smoker Alcohol use: No CD- Drugs: No Caffeine use: Yes Place of Residence: Home Review of Systems Gastrointestinal: Nausea, Vomiting, Abdominal Pain Physical Examination - Vital Signs Temperature: 98.3 F Blood Pressure: 128/76 Pulse: 75 Respirations: 16 Pulse Ox (%): 99 - Physical Exam General: Alert, In no apparent distress HEENT: Atraumatic, PERRLA, Mucous membr. moist/pink, EOMI, Sclerae nonicteric Neck: Supple, 2+ carotid pulse no bruit, No LAD, Without JVD or thyroid abnormality Respiratory: Clear to auscultation bilaterally, Normal air movement Cardiovascular: Regular rate/rhythm, Normal S1 S2 Gastrointestinal: Normal bowel sounds, Soft and benign, Non-distended, No tenderness, No guarding Musculoskeletal: No tenderness Integumentary: No rashes Neurological: Normal speech, Normal strength at 5/5 x4 extr, Normal tone, Normal affect Assessment and Plan - Problems (Diagnosis) (1) Small bowel obstruction Current Visit: Yes Status: Acute (2) Hypertension Current Visit: Yes Status: Acute Qualifiers: Hypertension type: primary hypertension Qualified Code(s): I10 - Essential (primary) hypertension (3) GERD (gastroesophageal reflux disease) Current Visit: Yes Status: Acute Qualifiers: Esophagitis presence: without esophagitis Qualified Code(s): K21.9 - Gastro-esophageal reflux disease without esophagitis - Plan -NPO with IV fluids. Gen surgery consulting -NG tube ordered but will hold at this time. Patient reports passing gas and has not vomited in 3 days. -Dilaudid PRN pain and Zofran PRN nausea -Cipro and Flagyl -SCDs for DVT PPx -reconcile and cont home medications Discharge Plan: Home Plan to discharge in: 48 Hours - Advance Directives Does patient have a Living Will: No Does patient have a Durable POA for Healthcare: No - Code Status/Comfort Care Code Status Assessed: Yes (Full) Critical Care: No Time Spent Managing Pts Care (In Minutes): 50
[2021-07-08] MEDS: Ringers Lactate 1,000 ML IV SCH (21:58)
[2021-07-08] MEDS: CIPROFLOXACIN 400mg IV 400 MG/200 ML BAG IV SCH (21:58)
[2021-07-08] MEDS ORDERED: MEPERIDINE HCL 50 MG/ML IV PRN (23:00)
[2021-07-08] MEDS ORDERED: DIPHENHYDRAMINE 50 MG/ML VIAL IV ONE (23:00)
[2021-07-09] MEDS: METRONIDAZOLE 500mg IVPB 500 MG/100 ML BAG IV SCH ×3 (00:49→16:57)
[2021-07-09 04:18] LABS: Hematocrit 37.4 % (39.6-49.0); MPV 7.9 fL (7.6-11.3); RBC Red Blood Cell Count 4.16 M/uL (4.33-5.43)
[2021-07-09 04:26] LABS: Albumin 3.2 g/dL (3.4-5.0); Bilirubin Total 0.5 mg/dL (0.2-1.0); Potassium 3.6 mmol/L (3.5-5.1); Protein, Total 6.1 g/dL (6.4-8.2)
[2021-07-09] MEDS: Ringers Lactate 1,000 ML IV SCH ×3 (06:17→22:19)
[2021-07-09] MEDS: ENOXAPARIN 30 MG/0.3 ML SQ SCH (08:27)
[2021-07-09] MEDS: CIPROFLOXACIN 400mg IV 400 MG/200 ML BAG IV SCH ×2 (08:28→20:42)
--- NOTE | 2021-07-09 08:39 | P.CNS ---
Date of Consult: 07/09/21 Reason for consult: Abdominal pain History of present illness: 40-year-old gentleman presents to our hospital from [place] with small bowel obstruction. Patient states that 3 days ago started having distended abdomen associated with nausea and vomiting. Has not vomited since Wednesday. Had last bowel movement yesterday. Patient is still passing gas. Patient currently does not have any nausea or vomiting. Pain is better. No blood in his stool and no blood in the urine. Patient had an upper endoscopy which was negative couple years ago. Patient's had a similar episode of obstruction approximately 2 years ago managed conservatively. Review of systems: Otherwise unremarkable Past medical history: Hypertension, GERD Past surgical history: Appendectomy Allergies: Hydromorphone, morphine Social history: Patient denies smoking or drinking alcohol Family history: Seizures and hypertension Vital signs: Stable, afebrile Physical exam: Awake alert oriented x3 Head and neck exam: Cranial nerves II through XII grossly within normal limits, throat clear, neck supple, no JVD, no neck masses Chest: Clear Heart: S1-S2 Abdomen: Soft, distended, decreased bowel sounds, diffuse tenderness with no rebound, rigidity or guarding Extremity: Neurovascular intact, nontender Neuro: Nonfocal Diagnostic data: Laboratory data reviewedno evidence of leukocytosis or acidosis. CT scan report from [place] shows small bowel obstruction. Abdominal x-ray this morning is pending. Assessment: Small bowel obstruction, etiology unclear Plan/recommendation: Will review the CAT scan done in [place] with our radiologist. We will review the abdominal x-ray ordered for this morning. If the patient vomits, patient will need a NG tube. Continue n.p.o., IV fluids, IV antibiotics. Serial abdominal exams. We will follow this patient closely while in the hospital. CC:
--- NOTE | 2021-07-09 09:03 | RAD REPORT ---
EXAM DESCRIPTION: RAD - Abdomen Single View - 07/09/2021 8:51 am CLINICAL HISTORY: Abdominal pain FINDINGS: Mildly dilated loops of small bowel have diminished in caliber. There is air present throu ghout the colon. Improvement in the small bowel obstruction
[2021-07-09] MEDS ORDERED: FENTANYL CITR 100 MCG/2 ML IV PRN (10:33)
[2021-07-10] MEDS: METRONIDAZOLE 500mg IVPB 500 MG/100 ML BAG IV SCH ×2 (00:41→09:20)
[2021-07-10 05:43] LABS: Hematocrit 40.6 % (39.6-49.0); MPV 7.8 fL (7.6-11.3); RBC Red Blood Cell Count 4.51 M/uL (4.33-5.43)
[2021-07-10 06:04] LABS: Albumin 3.4 g/dL (3.4-5.0); Bilirubin Total 0.6 mg/dL (0.2-1.0); Protein, Total 6.5 g/dL (6.4-8.2)
[2021-07-10] MEDS: Ringers Lactate 1,000 ML IV SCH (06:48)
[2021-07-10 09:09] VITALS: TEMP 97
[2021-07-10] MEDS: CIPROFLOXACIN 400mg IV 400 MG/200 ML BAG IV SCH (09:20)
[2021-07-10] MEDS: ENOXAPARIN 30 MG/0.3 ML SQ SCH (09:21)
--- NOTE | 2021-07-10 09:30 | RAD REPORT ---
EXAM DESCRIPTION: RAD - Abdomen W Erect - 07/10/2021 8:48 am CLINICAL HISTORY: SBO COMPARISON: Abdomen Single View dated 07/09/2021 TECHNIQUE: Supine and upright views of the abdomen were obtained. FINDINGS: A few mildly dilated small bowel loops remain. Pattern is generally similar to the prior s tudy. Air and stool are seen in nondilated colon down to the level of the rectum. No free air or pneumatosis identified. Stomach does not appear to be distended. No suspicious calcifi cations or significant bone finding. IMPRESSION: Prominent small bowel pattern not substantially different from July 09 imaging. No free air, pneumatosis or emergent new finding.
--- NOTE | 2021-07-10 09:40 | P.PN ---
Date of Service: 07/10/21 Subjective: Patient is awake and alert with minimal abdominal pain. No nausea or vomiting. Patient had a bowel movement last night. Patient is passing gas. Patient is tolerating clear liquid diet. Objective: Vital signs stable, afebrile Abdominal x-ray shows no evidence of obstruction. Laboratory data reviewedno significant change. Abdomen: Soft, nondistended, nontender, positive bowel sounds Assessment: Small bowel obstruction, improved Plan: Advance diet to full liquids, if tolerated, patient can be discharged home this afternoon. Patient encouraged to be small frequent meals and foods that are easy to digest. No need for antibiotics. Patient can follow-up with me on a as needed basis. CC:
[2021-07-10 11:47] VITALS: BP 125/67
[2021-07-10] MEDS ORDERED: [UNRECOGNIZED DRUG - OTHER] PO SCH (21:00)
[2021-07-11] MEDS ORDERED: lisinopriL 10 MG TAB PO SCH (09:00)
== END 2021-07-10 13:45 | disposition home or self-care (01) | DRG 390 ==
LOC: 2ND 19:20
PROVIDERS: ADMIT Hospitalist; ATTEND Hospitalist
DX: K56.609 Unspecified intestinal obstruction, unspecified as to partial versus complete obstruction (principal); I10 Essential (primary) hypertension; K21.9 Gastro-esophageal reflux disease without esophagitis
CPT/HCPCS: 36415; 74018; 74019; 80053; 85027; J0744; J1170; J1200; J1650; J2175; J3490; J7120

== ENCOUNTER 2024-03-31 16:02 | Emergency (ER) | payer BC ==
[2024-03-31 17:12] LABS: SARS-CoV-2 Antigen CONTROL BLUE LINE VIS/BG OK; SARS-CoV-2 Antigen Rapid Res Negative (Negative)
--- NOTE | 2024-03-31 17:52 | RAD REPORT ---
Procedure: Chest Pa And Lat (2 Views) HISTORY: Cough COMPARISON: none FINDINGS: The lungs appear clear of acute infiltrate. No significant pleural effusion noted. The heart is normal size. IMPRESSION: No acute abnormality is displayed.
--- NOTE | 2024-03-31 18:33 | EDPHYS ---
Physician Documentation [facility] Name: Elton Carbone Age: 43 yrs Sex: Male : 1980 Arrival Date: 03/31/2024 Time: 16:02 Bed DX3 Private MD: ED Physician Vj Redmond HPI: 03/31 16:40 This 43 yrs old Male presents to ER via Ambulatory with complaints of Flu cp Symptoms. 16:40 The patient or guardian reports cough, with productive sputum, flu symptoms, fever, cp body aches, sore throat. 16:40 Onset: The symptoms/episode began/occurred this past Wednesday night. Associated signs cp and symptoms: Pertinent negatives: diarrhea, vomiting. Severity of symptoms: in the emergency department the symptoms are unchanged despite home interventions. Historical: - Allergies: 16:35 No Known Allergies; cm10 - PMHx: 16:35 GERD; Hypertension; cm10 - PSHx: 16:35 None; cm10 - Immunization history:: Adult Immunizations up to date. - Infectious Disease History:: Denies. - Social history:: Smoking status: Patient denies any tobacco usage or history of. ROS: 16:45 Constitutional: Positive for body aches, fever, Negative for poor PO intake, cp 16:45 Eyes: Negative for injury, pain, redness, and discharge, cp 16:45 ENT: Positive for sore throat, Negative for drainage from ear(s), ear pain, difficulty swallowing, difficulty handling secretions, 16:45 Respiratory: Positive for cough, Negative for shortness of breath, wheezing, 16:45 Abdomen/GI: Negative for abdominal pain, vomiting, diarrhea, constipation, 16:45 Skin: Negative for rash, 16:45 Neuro: Positive for headache, weakness, Negative for altered mental status, 16:45 All other systems are negative, Exam: 16:50 Constitutional: The patient appears in no acute distress, alert, awake, non-toxic, well cp developed, well nourished, 16:50 Head/Face: Normocephalic, atraumatic. cp 16:50 Eyes: Periorbital structures: appear normal, Conjunctiva: normal, no exudate, no injection, Sclera: no appreciated abnormality, Lids and lashes: appear normal, bilaterally, 16:50 ENT: External ear(s): are unremarkable, Ear canal(s): are normal, clear, TM's: dullness, bilaterally, Nose: is normal, Mouth: Lips: moist, Oral mucosa: moist, Posterior pharynx: Airway: no evidence of obstruction, patent, 16:50 Neck: ROM/movement: is normal, is supple, no meningismus, no nuchal rigidity, 16:50 Chest/axilla: Inspection: normal, 16:50 Cardiovascular: Rate: tachycardic, Rhythm: regular, Edema: is not appreciated, JVD: is not appreciated, 16:50 Respiratory: the patient does not display signs of respiratory distress, Respirations: labored breathing, is not present, shallow respirations, are not present, Breath sounds: bronchial sounds, that are mild, are heard diffusely, stridor, is not appreciated, wheezing: is not appreciated, 16:50 Abdomen/GI: Inspection: abdomen appears normal, Palpation: abdomen is soft and non-tender, in all quadrants, Vital Signs: 16:31 BP 107 / 83; Pulse 99; Resp 15; Temp 98.8; Pulse Ox 96% ; Weight 84.82 kg; Height 6 ft. cm10 0 in. ; Pain 8/10; 16:31 Body Mass Index 25.36 (84.82 kg, 182.88 cm) cm10 16:31 Pain Scale: Adult cm10 MDM: 16:51 Medical Screening Exam initiated kenzie 17:00 Differential diagnosis: bronchitis, flu, pneumonia, strep throat, COVID-19. 18:31 Data reviewed: vital signs, nurses notes, lab test result(s), radiologic studies, plain cp films. 18:31 I considered the following discharge prescriptions or medication management in the emergency department Medications were administered in the Emergency Department. See MAR. Counseling: I had a detailed discussion with the patient and/or guardian regarding the historical points, exam findings, and any diagnostic results supporting the discharge/admit diagnosis, lab results, radiology results, to return to the emergency department if symptoms worsen or persist or if there are any questions or concerns that arise at home. 03/31 16:35 Order name: Flu; Complete Time: 18:12 cm10 03/31 16:35 Order name: Strep cm10 03/31 16:35 Order name: SARS RAPID; Complete Time: 18:12 cm10 03/31 17:15 Order name: Throat Culture [facility] 03/31 16:42 Order name: XRAY Chest Pa And Lat (2 Views); Complete Time: 18:12 cp 03/31 18:13 Interpretation: Report reviewed. cp Administered Medications: 19:11 Drug: Oseltamivir PO 75 mg PO once Route: PO; br2 Disposition Summary: 03/31/24 18:32 Discharge Ordered Notes: Location: Home cp Problem: new cp Symptoms: are unchanged cp Condition: Stable cp Diagnosis - Influenza due to identified novel influenza A virus with other respiratory cp manifestations Followup: cp - With: Private Physician - When: 2 - 3 days - Reason: Worsening of condition Discharge Instructions: - Discharge Summary Sheet cp - Influenza, Adult cp - Form - Excuse from Work, School, or Physical Activity cp - Form - Return To Work br2 Forms: - Medication Reconciliation Form cp - Antibiotic Education cp - Prescription Opioid Use cp - Patient Portal Instructions cp - Leadership Thank You Letter cp - Work release form br2 - Family Work Release br2 Prescriptions: - Bromfed DM 2-30-10 mg/5 mL Oral syrup - administer 10 milliliter ORAL route every 6-8 hours as needed for cold cp symptoms; 240 milliliter; Refills: 0, Product Selection Permitted - Ibuprofen 800 mg Oral Tablet - take 1 tablet ORAL route every 8 hours As needed take with food; 30 tablet; cp Refills: 0, Product Selection Permitted - Tamiflu 75 mg Oral Capsule - take 1 capsule ORAL route every 12 hours for 5 days; 10 capsule; Refills: 0, cp Product Selection Permitted - Zithromax Z-Benjamin 250 mg Oral Tablet - take 1 tablet ORAL route as directed for 5 days Day 1 - take two (2) tablets cp one time. Day 2, 3, 4 , 5 take one (1) tablet once daily.; 6 tablet; Refills: 0, Product Selection Permitted Addendum: 04/01/2024 22:07 Co-signature as Attending Physician, Vj Redmond MD I agree with the assessment and c hernández plan of care. Signatures: Dispatcher [employer] Vj Brown MD MD cha Page, Corey, PA PA cp Martinez, Clarissa, RN RN cm10 Cara Jules RN RN br2
--- NOTE | 2024-03-31 18:33 | ER ---
Nurse's Notes [facility] Name: Elton Carbone Age: 43 yrs Sex: Male : 1980 Arrival Date: 03/31/2024 Time: 16:02 Bed DX3 Private MD: Diagnosis: Influenza due to identified novel influenza A virus with other respiratory manifestations Presentation: 03/31 16:31 Chief complaint: Patient states: Fever, cough, and sore throat onset Wednesday. cm10 Coronavirus screen: Client denies travel out of the [place] in the last 14 days. Ebola Screen: Patient denies travel to an Ebola-affected area in the 21 days before illness onset. Initial Sepsis Screen: Does the patient meet any 2 criteria? HR > 90 bpm. Does the patient have a suspected source of infection? No. Patient's initial sepsis screen is negative. Risk Assessment: Do you want to hurt yourself or someone else? Patient reports no desire to harm self or others. Onset of symptoms was March 31, 2024. 16:31 Method Of Arrival: Ambulatory 10 16:31 Acuity: ROCHELLE 4 cm10 Triage Assessment: 16:36 General: Appears in no apparent distress. comfortable, Behavior is calm, cooperative. cm10 Neuro: No deficits noted. Level of Consciousness is awake, alert, obeys commands, Oriented to person, place, time, situation, Appropriate for age. Respiratory: No deficits noted. Airway is patent Respiratory effort is even, unlabored, Respiratory pattern is regular, symmetrical. Historical: - Allergies: 16:35 No Known Allergies; cm10 - PMHx: 16:35 GERD; Hypertension; cm10 - PSHx: 16:35 None; cm10 - Immunization history:: Adult Immunizations up to date. - Infectious Disease History:: Denies. - Social history:: Smoking status: Patient denies any tobacco usage or history of. Assessment: 19:05 Reassessment: Patient and/or family updated on plan of care and expected duration. Pain br2 level reassessed. Patient is alert, oriented x 3, equal unlabored respirations, skin warm/dry/pink. Reassessment: Patient states feeling better. Vital Signs: 16:31 BP 107 / 83; Pulse 99; Resp 15; Temp 98.8; Pulse Ox 96% ; Weight 84.82 kg; Height 6 ft. cm10 0 in. ; Pain 8/10; 16:31 Body Mass Index 25.36 (84.82 kg, 182.88 cm) cm10 16:31 Pain Scale: Adult cm10 ED Course: 16:05 Patient arrived in ED. im 16:09 Vj Townsend PA is PHCP. wayne 16:09 Vj Redmond MD is Attending Physician. cp 16:34 Triage completed. cm10 16:35 Arm band placed on right wrist. Patient placed in waiting room. cm10 16:37 SARS RAPID Sent. cm10 16:37 Strep Sent. cm10 16:37 Flu Sent. cm10 16:38 COVID swab sent to lab. Flu and/or RSV swab sent to lab. Strep swab sent to lab. cm10 17:21 XRAY Chest Pa And Lat (2 Views) In Process Unspecified. EDMS Administered Medications: 19:11 Drug: Oseltamivir PO 75 mg PO once Route: PO; br2 Outcome: 18:32 Discharge ordered by . cp 19:32 Patient left the ED. br2 Signatures: Dispatcher [employer] EDMS Vj Townsend PA PA Rosalina Siddiqui Clarissa, RN RN cm10 Cara Jules RN RN br2
[2024-03-31] MEDS ORDERED: OSELTAMIVIR 75 MG CAP PO ONE (19:07)
[2024-03-31 19:35] VITALS: BP 107/83; TEMP 98.8; O2SAT 96
== END 2024-03-31 19:32 | disposition home or self-care (01) ==
LOC: ER 16:02
DX: J10.1 Influenza due to other identified influenza virus with other respiratory manifestations (principal); Z11.52 Encounter for screening for COVID-19
CPT/HCPCS: 36415; 71046; 87070; 87081; 87804; 87811; 99283